=== PATIENT | female | born 1990 | race African-American/Black ===

== ENCOUNTER 2016-11-20 08:02 | Emergency (ER) | payer BC ==
[2016-11-20] MEDS ORDERED: Lidocaine 1% 20 ML MDV ONE (08:16)
== END 2016-11-20 08:42 | disposition home or self-care (01) ==
LOC: NAV ERS 08:02
DX: L02.426 Furuncle of left lower limb (principal); E03.9 Hypothyroidism, unspecified; J45.909 Unspecified asthma, uncomplicated; Z87.891 Personal history of nicotine dependence; Z79.899 Other long term (current) drug therapy
CPT/HCPCS: 10060; 87070; 87205; J2001

== ENCOUNTER 2017-04-15 07:05 | Emergency (ER) | payer BC ==
[2017-04-15] MEDS ORDERED: Acetaminophen 500 MG TAB ONE (07:32)
[2017-04-15] MEDS ORDERED: Dexamethasone 20 MG/5 ML VIAL ONE (07:32)
[2017-04-15] MEDS ORDERED: Ketorolac Tromethamine 60 MG/2 ML VIAL ONE (07:32)
== END 2017-04-15 07:43 | disposition home or self-care (01) ==
LOC: NAV ERS 07:05
DX: M54.5 Low back pain (principal); E03.9 Hypothyroidism, unspecified; J45.909 Unspecified asthma, uncomplicated; Z87.891 Personal history of nicotine dependence
CPT/HCPCS: 96372; J1100; J1885